=== PATIENT | male | born 1940 | race Caucasian/White ===

== ENCOUNTER 2016-12-27 10:30 | Emergency (ER) | payer OTHER ==
[2016-12-27 10:43] VITALS: BP 148/63; PULSE 61; RESP 16; TEMP 98.1; O2SAT 95
[2016-12-27] MEDS ORDERED: TETANUS, DIPHTHERIA TOX (7YR+) 0.5 ML INJ IM ONE (10:46)
--- NOTE | 2016-12-27 11:23 | EDPHY ---
H & P Time Seen by Provider: 12/27/16 10:48 HPI/ROS: CHIEF COMPLAINT: Dog bite History by patient HISTORY OF PRESENT ILLNESS: 76-year-old man presents complaining of dog bite to right inner thigh which occurred 2 days ago. It was his neighbor's dog. Animal control in the please were involved. Patient comes in today because he thinks he needs a tetanus shot. He is not concerned about infection. He has been washing and placing antibiotic ointment on the wound. Denies any other pain or injury. REVIEW OF SYSTEMS: As in HPI, and all other systems reviewed and are negative Smoking Status: Never smoked Physical Exam: General Appearance: Alert and no distress. Eyes: Pupils equal and round no injection. Musculoskeletal: Neck is supple and nontender. Extremities: Right medial thigh with superficial 2 cm lunate shaped wound without surrounding erythema or drainage. Positive surrounding ecchymoses with mild tenderness. Normal gait, full range of motion of her right leg including knee and hip, distal neurovascular intact Skin: No rashes , but lesion as above. Constitutional: Initial Vital Signs Temperature (C) 36.7 C 12/27/16 10:37 Heart Rate 61 12/27/16 10:37 Respiratory Rate 16 12/27/16 10:37 Blood Pressure 148/63 H 12/27/16 10:37 O2 Sat (%) 95 12/27/16 10:37 O2 Delivery Mode Room Air Allergies/Adverse Reactions: No Known Allergies Allergy (Verified 12/27/16 10:36) Home Medications: Medication Instructions Recorded Keppra 12/27/16 Omeprazole 12/27/16 MDM/Departure - MDM ED Course/Re-evaluation: 76-year-old man presents after a dog bite that is nonsuturable and there is no evidence of infection. Patient request tetanus immunization update which he has been given. We discussed signs symptoms of infection at home wound care. - Depart Disposition: Home, Routine, Self-Care Clinical Impression: Dog bite of extremity Condition: Good Instructions: Animal Bite (ED) Additional Instructions: You were seen by Dr. Ginger Renee today. Return for any worsening or new concerns. We have updated your tetanus immunization. Referrals: Lucretia Trent MD [Primary Care Provider] - As per Instructions
== END 2016-12-27 11:20 | disposition home or self-care (01) ==
LOC: CED 10:30
DX: S71.151A Open bite, right thigh, initial encounter (principal); Z23 Encounter for immunization; W54.0XXA Bitten by dog, initial encounter